=== PATIENT | male | born 1950 | race Caucasian/White ===

== ENCOUNTER 2023-12-22 07:23 | Day surgery (SDC) | payer BC, MEDICARE ==
[~2023-12-22] VITALS: Ht 182.9 cm; Wt 112.2 kg
[2023-12-22] VITALS (14 sets, daily range): BP systolic 124–159; BP diastolic 64–87; PULSE 66–84; RESP 14–16; TEMP 98.3; O2SAT 95–99
[2023-12-22] MEDS ORDERED: nitroGLYCERIN 0.4mg SUBLingual tab SL PRN ×2 (07:45→13:20)
[2023-12-22] MEDS ORDERED: LORA-512 PO (07:58)
[2023-12-22] MEDS ORDERED: AMLO5TAB16 PO (07:58)
[2023-12-22] MEDS ORDERED: ASPI-611 PO (07:58)
[2023-12-22 08:27] LABS: BASOPHILS % (AUTO) 0.5 % (0-1); EOSINOPHILS # (AUTO) 0.1 X10'3 (0-0.9); EOSINOPHILS % (AUTO) 2.2 % (0-6); HEMOGLOBIN 15.4 g/dl (14.0-17.9); LYMPHOCYTES # (AUTO) 2.1 X10'3 (1.1-4.8); LYMPHOCYTES % (AUTO) 39.1 % (21-51); MEAN CORPUSCULAR HEMOGLOBIN 29.9 PG (27.0-31.0); MEAN CORPUSCULAR HGB CONC 33.5 g/dL (33.0-36.5); MEAN PLATELET VOLUME 8.3 FL (7.4-10.4); MONOCYTES # (AUTO) 0.5 X10'3 (0-0.9); MONOCYTES % (AUTO) 9.7 % (2-12); NEUTROPHILS # (AUTO) 2.7 X10'3 (1.8-7.7); NEUTROPHILS % (AUTO) 48.5 % (42-75); PLATELET COUNT 150 X10'3 (140-440); RED BLOOD COUNT 5.16 X10'6 (4.70-6.10); WHITE BLOOD COUNT 5.5 X10'3 (4.5-11.0)
[2023-12-22] MEDS: LORazepam 0.5 MG tablet PO PRN (08:29)
[2023-12-22] MEDS: normal saline 1,000 ML IV SCH (08:29)
[2023-12-22] MEDS: diphenhydrAMINE 25mg capsule PO PRN (08:29)
[2023-12-22 08:34] LABS: ALBUMIN 4.1 G/DL (3.4-5.0); ANION GAP 8 (8-16); BLOOD UREA NITROGEN 18 MG/DL (7-18); CALCIUM 9.3 MG/DL (8.5-10.1); CHLORIDE 105 MMOL/L (99-107); CREATININE 0.82 MG/DL (0.60-1.10); GLUCOSE 100 MG/DL (70-104); POTASSIUM 3.9 MMOL/L (3.5-5.1); SODIUM 139 MMOL/L (135-145); eCRCL 87 ML/MIN; eGFR > 90 ML/MIN
[2023-12-22 08:39] LABS: APTT 28 SECONDS (22-32); INR 1.1 INR
[2023-12-22 09:01] LABS: PROTHROMBIN TIME 11.3 SECONDS (9.0-12.0)
[2023-12-22] MEDS ORDERED: iohexol 350 MG/ML 50ML vial IV ONE (11:07)
[2023-12-22] MEDS ORDERED: LIDOcaine 1% 30ml preserv. free vial ONE (11:07)
[2023-12-22] MEDS ORDERED: fentaNYL/PF 50MCG/1 ML 2ML syringe ONE ×2 (11:07→11:53)
[2023-12-22] MEDS ORDERED: midazolam 1 mg/ML 2ml injection ONE ×2 (11:07→11:53)
[2023-12-22] MEDS ORDERED: iohexol 350MG/ML 100ml bottle IV ONE (11:08)
[2023-12-22] MEDS ORDERED: heparin 1,000unit/ml 10ml vial 0 ML ONE (11:08)
[2023-12-22] MEDS ORDERED: HYDROcodone/acetaminophen 10/325mg tab PO PRN (13:20)
[2023-12-22] MEDS ORDERED: OXAZEpam 15mg capsule PO PRN (13:20)
[2023-12-22] MEDS ORDERED: ondansetron/PF 4mg/2ml inj IV PRN (13:20)
[2023-12-22] MEDS ORDERED: normal saline 1000ml 1,000 ML IV SCH (13:20)
[2023-12-22] MEDS ORDERED: HYDROcodone/acetaminophen 5mg/325mg tablet PO PRN (13:20)
[2023-12-22] MEDS ORDERED: proCHLORperazine 10 MG/2 ml inj IV PRN (13:20)
== END 2023-12-22 18:00 | disposition home or self-care (01) ==
LOC: SSTAY O 07:23
PROVIDERS: ATTEND Internal Medicine Cardiovascular Disease
DX: R94.39 Abnormal result of other cardiovascular function study (principal); I25.10 Atherosclerotic heart disease of native coronary artery without angina pectoris; I10 Essential (primary) hypertension; G47.30 Sleep apnea, unspecified
CPT/HCPCS: 36415; 71046; 80048; 83880; 85025; 85610; 85730; 93005; 93458; 99152; A6258; C1760; J1644; J2001; J2250; J3010; J7030; Q0163; Q9967; Z7610; 99153; J3490